=== PATIENT | female | born 1985 | race Caucasian/White ===

== ENCOUNTER 2016-12-09 15:13 | Emergency (ER) | payer MEDICAID ==
[2016-12-09] MEDS ORDERED: IBUPROFEN 800 MG TABLET PO ONE (15:19)
--- NOTE | 2016-12-09 15:19 | ER Document Report ---
ED Medical Screen (RME) - General Stated Complaint: FLANK PAIN Time seen by provider: 15:17 Mode of Arrival: Ambulatory Information source: Patient Notes: 31-year-old female presents to ED for right flank pain with nausea and vomiting. Patient states she's had multiple multiple kidney stones and this is what they feel like. States she has a bilateral tubal ligation and her period was 2 weeks ago I have greeted and performed a rapid initial assessment of this patient. A comprehensive ED assessment and evaluation of the patient, analysis of test results and completion of medical decision making process will be conducted by an additional ED providers. TRAVEL OUTSIDE OF THE [place] IN LAST 30 DAYS: No - Related Data Allergies/Adverse Reactions: amoxicillin trihydrate [From Augmentin] Allergy (Verified 08/14/16 18:31) dolasetron mesylate [From Anzemet] Allergy (Verified 08/14/16 18:31) Iodinated Contrast Media - Oral and [Iodinated Contrast Media - IV Dye] Allergy (Verified 08/14/16 18:31) ketorolac tromethamine [From Toradol] Allergy (Verified 08/14/16 18:31) loperamide HCl [From Imodium A-D] Allergy (Verified 08/14/16 18:31) metoclopramide HCl [From Reglan] Allergy (Verified 08/14/16 18:31) ondansetron HCl [From Zofran (as hydrochloride)] Allergy (Verified 08/14/16 18: 31) potassium clavulanate [From Augmentin] Allergy (Verified 08/14/16 18:31) prochlorperazine [From Compazine] Allergy (Verified 08/14/16 18:31) prochlorperazine edisylate [From Compazine] Allergy (Verified 08/14/16 18:31) prochlorperazine maleate [From Compazine] Allergy (Verified 08/14/16 18:31) Past Medical History - Past Medical History Cardiac Medical History: Reports: Hx Pulmonary Embolism Pulmonary Medical History: Reports: Hx Bronchitis - chronic Neurological Medical History: Reports: Hx Cerebrovascular Accident Endocrine Medical History: Denies: Hx Diabetes Mellitus Type 1, Hx Diabetes Mellitus Type 2 Renal/ Medical History: Reports: Hx Kidney Stones, Hx Ovarian Cysts Psychiatric Medical History: Reports: Hx Anxiety, Hx Depression Past Surgical History: Reports: Hx Section - x2, Hx Cholecystectomy, Hx Genitourinary Surgery - KIDNEY STONES, OVARIAN CYSTS - Immunizations Hx Diphtheria, Pertussis, Tetanus Vaccination: Yes
[2016-12-09] MEDS ORDERED: NORMAL SALINE 1000 ML 1,000 ML IV ONE (15:23)
[2016-12-09] MEDS ORDERED: MORPHINE SULFATE 10 MG/ML INJ IV ONE (16:28)
[2016-12-09] MEDS ORDERED: PROMETHAZINE HCL 25 MG TABLET PO ONE (16:28)
--- NOTE | 2016-12-09 16:34 | ER Document Report ---
ED GI/ <SONIYA ESTEVES - Last Filed: 12/10/16 01:14> - General Mode of Arrival: Ambulatory Information source: Patient TRAVEL OUTSIDE OF THE [place] IN LAST 30 DAYS: No - HPI Patient complains to provider of: Dysuria, Vomiting, Other - Right flank pain. No: Vaginal discharge Onset: Last week Timing/Duration: Persistent, Worse Quality of pain: Sharp Pain Level: 5 Location: Right flank Vaginal bleeding (Compared to normal period): None Associated symptoms: Diarrhea, Nausea, Urinary frequency, Vomiting. denies: Loss of appetite, Vaginal discharge Exacerbated by: Denies Relieved by: Denies Similar symptoms previously: Yes Recently seen / treated by doctor: No <SOLO QUINTERO - Last Filed: 12/10/16 11:20> - General Chief Complaint: Possible Kidney Stone Stated Complaint: FLANK PAIN Notes: Patient presents complaining of right flank pain for the past 6 days. Patient reports nausea with vomiting 3 episodes today. Patient also reports diarrhea times one episode today. Patient states pain started to worsen yesterday. Patient does complain of chills and urinary frequency. (SOLO QUINTERO) - Related Data Allergies/Adverse Reactions: amoxicillin trihydrate [From Augmentin] Allergy (Verified 12/09/16 15:20) dolasetron mesylate [From Anzemet] Allergy (Verified 12/09/16 15:20) Iodinated Contrast Media - Oral and [Iodinated Contrast Media - IV Dye] Allergy (Verified 12/09/16 15:20) ketorolac tromethamine [From Toradol] Allergy (Verified 12/09/16 15:20) loperamide HCl [From Imodium A-D] Allergy (Verified 12/09/16 15:20) metoclopramide HCl [From Reglan] Allergy (Verified 12/09/16 15:20) ondansetron HCl [From Zofran (as hydrochloride)] Allergy (Verified 12/09/16 15: 20) potassium clavulanate [From Augmentin] Allergy (Verified 12/09/16 15:20) prochlorperazine [From Compazine] Allergy (Verified 12/09/16 15:20) prochlorperazine edisylate [From Compazine] Allergy (Verified 12/09/16 15:20) prochlorperazine maleate [From Compazine] Allergy (Verified 12/09/16 15:20) Past Medical History - General Information source: Patient - Social History Smoking Status: Unknown if Ever Smoked Chew tobacco use (# tins/day): No Frequency of alcohol use: None Drug Abuse: None Occupation: none Lives with: Family Family History: None Patient has suicidal ideation: No Patient has homicidal ideation: No - Medical History Medical History: Other - [place] - Past Medical History Cardiac Medical History: Reports: Hx DVT, Hx Pulmonary Embolism Pulmonary Medical History: Reports: Hx Bronchitis - chronic Neurological Medical History: Reports: Hx Cerebrovascular Accident Endocrine Medical History: Denies: Hx Diabetes Mellitus Type 1, Hx Diabetes Mellitus Type 2 Renal/ Medical History: Reports: Hx Kidney Stones, Hx Ovarian Cysts. Denies: Hx Peritoneal Dialysis Psychiatric Medical History: Reports: Hx Anxiety, Hx Depression Past Surgical History: Reports: Hx Section - x2, Hx Cholecystectomy, Hx Genitourinary Surgery - KIDNEY STONES, OVARIAN CYSTS - Immunizations Hx Diphtheria, Pertussis, Tetanus Vaccination: Yes <SOLO QUINTERO - Last Filed: 12/10/16 11:20> Review of Systems - Review of Systems Constitutional: Chills. denies: Fever EENT: No symptoms reported Cardiovascular: No symptoms reported. denies: Chest pain Respiratory: No symptoms reported. denies: Cough, Short of breath Gastrointestinal: Abdominal pain, Diarrhea, Nausea, Vomiting Genitourinary: Frequency, Flank pain Female Genitourinary: No symptoms reported. denies: , Vaginal discharge , Vaginal bleeding Musculoskeletal: No symptoms reported. denies: Back pain Skin: No symptoms reported Hematologic/Lymphatic: No symptoms reported Neurological/Psychological: No symptoms reported <SOLO QUINTERO - Last Filed: 12/10/16 11:20> Physical Exam <SONIYA ESTEVES - Last Filed: 12/10/16 01:14> - Vital signs Interpretation: Normal - apical 100 bpm. No: Tachycardic - General General appearance: Appears well, Alert In distress: Mild <SOLO QUINTERO - Last Filed: 12/10/16 11:20> - Vital signs Vitals: Temp Pulse Resp BP Pulse Ox 97.8 F 120 H 19 106/51 L 100 12/09/16 15:19 12/09/16 15:19 12/09/16 15:19 12/09/16 15:19 12/09/16 15:19 (SONIYA ESTEVES) (SOLO QUINTERO) - General Notes: PHYSICAL EXAMINATION: GENERAL: Patient sitting at side of bed, appears to be in discomfort HEAD: Atraumatic, normocephalic. EYES: sclera anicteric, conjunctiva are normal. ENT: nares patent. Moist mucous membranes. NECK: Normal range of motion, supple without lymphadenopathy LUNGS: CTAB and equal. No wheezes rales or rhonchi. HEART: Regular rate and rhythm without murmurs ABDOMEN: Soft, nontender, normal bowel sounds, no guarding. EXTREMITIES: Normal range of motion, no pitting edema. No cyanosis. BACK: No midline tenderness, no step-off or deformity. right CVA tenderness NEUROLOGICAL: Cranial nerves grossly intact. Normal speech. PSYCH: Normal mood, normal affect. SKIN: Warm, Dry, normal turgor, no rashes or lesions noted (SOLO QUINTERO) Course - Laboratory Result Diagrams: 12/09/16 17:50 12/09/16 16:55 <SONIYA ESTEVES - Last Filed: 12/10/16 01:14> - Laboratory Result Diagrams: 12/09/16 17:50 12/09/16 16:55 <SOLO QUINTERO - Last Filed: 12/10/16 11:20> - Re-evaluation Re-evalutation: 12/09/16 Ultrasound shows no hydronephrosis or stones, no other abnormality noted. Patient with hematuria but normal lab workup otherwise. It is possible patient passed the stone with resulting hematuria and pain. Patient occassionally becomes anxious during conversation and begins to ask "what if" questions including obstruction and return precautions. Discussed with patient in detail. Patient was given prescriptions for pain medication, we discussed return precautions including fever, uncontrolled vomiting, etc. Patient states understanding and agreement. (SONIYA ESTEVES) 12/09/16 16:54 Patient given morphine IV. Patient states she's had this medication in the past without adverse reaction. Patient complains of itching and hives to right upper extremity. Dr. Salas at bedside, states that we can hold epinephrine at this time but does recommend IV solu Medrol and Benadryl. Patient very anxious , although is having blood drawn by cto at this time. Respirations even unlabored. No angioedema. No potential airway compromise. 12/09/16 17:11 Patient very anxious, states that her anxiety is worse in her pain and is requesting something for her anxiety symptoms. 12/09/16 17:57 Patient tearful, continually rocking, requesting for additional pain medication. 12/09/16 19:[address] Salas, reviewed diagnostics, recommends renal ultrasound Bedside report and handoff given to Yifan ALCANTARA (SOLO QUINTERO) - Vital Signs Vital signs: Temp Pulse Resp BP Pulse Ox 98.6 F 112 H 18 122/89 H 95 12/09/16 23:02 12/09/16 23:02 12/09/16 23:02 12/09/16 23:02 12/09/16 23:02 (SONIYA ESTEVES) (SOLO QUINTERO) - Laboratory Laboratory results interpreted by me: 12/09/16 18:15 Urine Blood LARGE H Ur Leukocyte Esterase TRACE H (SONIYA ESTEVES) 12/09/16 18:15 Urine Blood LARGE H Ur Leukocyte Esterase TRACE H 12/10/16 11:20 Labs- Entire Visit 12/09/16 12/09/16 12/09/16 16:55 16:55 16:55 WBC Cancelled RBC Cancelled Hgb Cancelled Hct Cancelled MCV Cancelled MCH Cancelled MCHC Cancelled RDW Cancelled Plt Count Cancelled Seg Neutrophils % Cancelled Lymphocytes % Cancelled Monocytes % Cancelled Eosinophils % Cancelled Basophils % Cancelled Absolute Neutrophils Cancelled Absolute Lymphocytes Cancelled Absolute Monocytes Cancelled Absolute Eosinophils Cancelled Absolute Basophils Cancelled Platelet Estimate Cancelled Sodium 143.6 Potassium 4.2 Chloride 104 Carbon Dioxide 26 Anion Gap 14 BUN 13 Creatinine 0.77 Est GFR ( Amer) > 60 Est GFR (Non-Af Amer) > 60 Glucose 92 Calcium 9.9 Total Bilirubin 0.6 Direct Bilirubin 0.0 AST 14 ALT 25 Alkaline Phosphatase 114 Total Protein 7.9 Albumin 4.1 Lipase 80.6 Serum HCG, Qual NEGATIVE Urine Color Urine Appearance Urine pH Ur Specific [place] Urine Protein Urine Glucose (UA) Urine Ketones Urine Blood Urine Nitrite Urine Bilirubin Urine Urobilinogen Ur Leukocyte Esterase Urine WBC (Auto) Urine RBC (Auto) Urine Bacteria (Auto) Squamous Epi Cells Auto U Non-Squamous Epis Auto Urine Mucus (Auto) Urine Ascorbic Acid Slides for Path Review Cancelled 12/09/16 12/09/16 17:50 18:15 WBC 10.0 RBC 5.17 Hgb 14.3 Hct 44.4 MCV 86 MCH 27.7 MCHC 32.3 RDW 13.5 Plt Count 245 Seg Neutrophils % 64.8 Lymphocytes % 27.6 Monocytes % 7.0 Eosinophils % 0.0 Basophils % 0.6 Absolute Neutrophils 6.5 Absolute Lymphocytes 2.8 Absolute Monocytes 0.7 Absolute Eosinophils 0.0 Absolute Basophils 0.1 Platelet Estimate Sodium Potassium Chloride Carbon Dioxide Anion Gap BUN Creatinine Est GFR ( Amer) Est GFR (Non-Af Amer) Glucose Calcium Total Bilirubin Direct Bilirubin AST ALT Alkaline Phosphatase Total Protein Albumin Lipase Serum HCG, Qual Urine Color YELLOW Urine Appearance CLOUDY Urine pH 8.0 Ur Specific [place] 1.009 Urine Protein NEGATIVE Urine Glucose (UA) NEGATIVE Urine Ketones NEGATIVE Urine Blood LARGE H Urine Nitrite NEGATIVE Urine Bilirubin NEGATIVE Urine Urobilinogen NEGATIVE Ur Leukocyte Esterase TRACE H Urine WBC (Auto) 9 Urine RBC (Auto) 132 Urine Bacteria (Auto) 1+ Squamous Epi Cells Auto 48 U Non-Squamous Epis Auto 1 Urine Mucus (Auto) RARE Urine Ascorbic Acid NEGATIVE Slides for Path Review (SOLO QUINTERO) Discharge <SONIYA ESTEVES - Last Filed: 12/10/16 01:14> <SOLO QUINTERO - Last Filed: 12/10/16 11:20> - Discharge Clinical Impression: Right flank pain Condition: Stable Disposition: HOME, SELF-CARE Additional Instructions: Your urine shows blood, your workup otherwise is normal (including your ultrasound which shows no swelling or stones). It is possible you passed a stone already. Take the medications if needed for pain. Follow up with Urology. Return to the ED for any concerning symptoms- fever, vomiting, etc. Prescriptions: Oxycodone HCl/Acetaminophen [Percocet 5-325 mg Tablet] 1 - 2 tab PO Q4H PRN #15 tablet PRN Reason: Promethazine HCl [Phenergan 25 mg Tablet] 1 - 2 tab PO Q6H PRN #20 tablet PRN Reason:
[2016-12-09] MEDS ORDERED: EPINEPHRINE INJ/PF 1 MG/1 ML AMPULE ONE (16:49)
[2016-12-09] MEDS ORDERED: DIPHENHYDRAMINE HCL 50 MG/ML VIAL ONE (16:49)
[2016-12-09] MEDS ORDERED: EPINEPHRINE INJ/PF 1 MG/1 ML AMPULE IM ONE (16:50)
[2016-12-09] MEDS ORDERED: DIPHENHYDRAMINE HCL 50 MG/ML VIAL IV ONE (16:50)
[2016-12-09] MEDS ORDERED: METHYLPREDNISOLONE INJ 125 MG/2 ML SDV IV ONE (16:50)
[2016-12-09] MEDS ORDERED: FAMOTIDINE INJ/PF 20 MG/2 ML SDV IV ONE (16:53)
[2016-12-09] MEDS ORDERED: LORAZEPAM INJ 2 MG/1 ML VIAL IV ONE (17:10)
[2016-12-09 17:31] LABS: ALANINE AMINOTRANSFERASE 25 U/L (9-52); ALBUMIN 4.1 g/dL (3.5-5.0); ALKALINE PHOSPHATASE 114 U/L (38-126); ANION GAP 14 (5-19); ASPARTATE AMINO TRANSFERASE 14 U/L (14-36); BILIRUBIN,TOTAL 0.6 mg/dL (0.2-1.3); BLOOD UREA NITROGEN 13 mg/dL (7-20); CALCIUM 9.9 mg/dL (8.4-10.2); CARBON DIOXIDE 26 mmol/L (22-30); CHLORIDE 104 mmol/L (98-107); CREATININE RESULT 0.77 mg/dL (0.52-1.25); GLUCOSE 92 mg/dL (75-110); LIPASE 80.6 U/L (23-300); POTASSIUM 4.2 mmol/L (3.6-5.0); SODIUM 143.6 mmol/L (137-145); TOTAL PROTEIN 7.9 g/dL (6.3-8.2)
[2016-12-09] MEDS ORDERED: HYDROMORPHONE HCL INJ/PF 2 MG/ML AMPULE IV ONE ×2 (17:57→20:42)
[2016-12-09 18:25] LABS: ABSOLUTE BASOPHILS # (AUTO) 0.1 10^3/uL (0.0-0.2); ABSOLUTE LYMPHOCYTES (AUTO) 2.8 10^3/uL (0.5-4.7); ABSOLUTE MONOCYTES (AUTO) 0.7 10^3/uL (0.1-1.4); ABSOLUTE NEUT (AUTO) 6.5 10^3/uL (1.7-8.2); BASOPHILS % (AUTO) 0.6 % (0-2); HEMATOCRIT 44.4 % (36.0-47.0); HEMOGLOBIN 14.3 g/dL (12.0-15.5); HGB HCT DIFFERENCE -1.5; LYMPHOCYTES % (AUTO) 27.6 % (13-45); MEAN CORPUSCULAR HEMOGLOBIN 27.7 pg (27.0-33.4); MEAN CORPUSCULAR HGB CONC 32.3 g/dL (32.0-36.0); MEAN CORPUSCULAR VOLUME 86 fl (80-97); RED BLOOD COUNT 5.17 10^6/uL (3.72-5.28); RED CELL DISTRIBUTION WIDTH 13.5 % (11.5-14.0); SEGMENTED NEUTROPHILS % (AUTO) 64.8 % (42-78)
[2016-12-09 18:50] LABS: APPEARANCE,URINE CLOUDY; BILIRUBIN,URINE NEGATIVE (NEGATIVE); GLUCOSE, URINE NEGATIVE (NEGATIVE); KETONES,URINE NEGATIVE (NEGATIVE); LEUKOCYTE ESTERASE,URINE TRACE (NEGATIVE); NITRITE,URINE NEGATIVE (NEGATIVE); PROTEIN,URINE NEGATIVE (NEGATIVE); URINE SPECIFIC GRAVITY 1.009; UROBILINOGEN,URINE NEGATIVE mg/dL (<2.0)
[2016-12-09 23:03] VITALS: BP 122/89
== END 2016-12-09 23:11 | disposition home or self-care (01) ==
LOC: ER 15:13
DX: R10.9 Unspecified abdominal pain (principal); R11.2 Nausea with vomiting, unspecified; R19.7 Diarrhea, unspecified; R68.83 Chills (without fever); R35.0 Frequency of micturition; R31.9 Hematuria, unspecified; F41.9 Anxiety disorder, unspecified; L50.9 Urticaria, unspecified; Z88.0 Allergy status to penicillin; Z91.041 Radiographic dye allergy status; Z88.8 Allergy status to other drugs, medicaments and biological substances; Z86.711 Personal history of pulmonary embolism; Z86.73 Personal history of transient ischemic attack (TIA), and cerebral infarction without residual deficits; Z86.718 Personal history of other venous thrombosis and embolism; Z87.42 Personal history of other diseases of the female genital tract; Z90.49 Acquired absence of other specified parts of digestive tract
CPT/HCPCS: 96376; 99284; 96361; 96374; 96375; 36415; 83690; 84703; 85025; 80053; 81001; 76770; J3490 ×2; J1200; J2930; J2270; J1170; J2060; J7030; S0028

== ENCOUNTER 2017-01-14 16:31 | Emergency (ER) | payer MEDICAID ==
[2017-01-14 16:36] VITALS: BP 139/84
[2017-01-14] MEDS ORDERED: ACETAMINOPHEN 325 MG TABLET PO ONE (16:49)
--- NOTE | 2017-01-14 16:52 | ER Document Report ---
ED Medical Screen (RME) - General Stated Complaint: EAR PAIN Time seen by provider: 16:49 Mode of Arrival: Ambulatory Information source: Patient Notes: 31-year-old female complaining of right-sided jaw/ear pain and preauricular/ inferior ear pain. hurts when she opens her mouth. She has a history of TMJ. Her ear is normal in triage. I have greeted and performed a rapid initial assessment of this patient. A comprehensive ED assessment, evaluation of the patient, analysis of test results , and completion of the medical decision making process will be conducted by additional ED providers. TRAVEL OUTSIDE OF THE [place] IN LAST 30 DAYS: No - Related Data Allergies/Adverse Reactions: amoxicillin trihydrate [From Augmentin] Allergy (Verified 12/09/16 15:20) dolasetron mesylate [From Anzemet] Allergy (Verified 12/09/16 15:20) Iodinated Contrast Media - Oral and [Iodinated Contrast Media - IV Dye] Allergy (Verified 12/09/16 15:20) ketorolac tromethamine [From Toradol] Allergy (Verified 12/09/16 15:20) loperamide HCl [From Imodium A-D] Allergy (Verified 12/09/16 15:20) metoclopramide HCl [From Reglan] Allergy (Verified 12/09/16 15:20) nitrofurantoin [From Macrodantin] Allergy (Verified 01/14/17 16:49) ondansetron HCl [From Zofran (as hydrochloride)] Allergy (Verified 12/09/16 15: 20) potassium clavulanate [From Augmentin] Allergy (Verified 12/09/16 15:20) prochlorperazine [From Compazine] Allergy (Verified 12/09/16 15:20) prochlorperazine edisylate [From Compazine] Allergy (Verified 12/09/16 15:20) prochlorperazine maleate [From Compazine] Allergy (Verified 12/09/16 15:20) Sulfa (Sulfonamide Antibiotics) Allergy (Verified 01/14/17 16:49) Past Medical History - Past Medical History Cardiac Medical History: Reports: Hx DVT, Hx Pulmonary Embolism Pulmonary Medical History: Reports: Hx Bronchitis - chronic Neurological Medical History: Reports: Hx Cerebrovascular Accident Endocrine Medical History: Denies: Hx Diabetes Mellitus Type 1, Hx Diabetes Mellitus Type 2 Renal/ Medical History: Reports: Hx Kidney Stones, Hx Ovarian Cysts. Denies: Hx Peritoneal Dialysis Psychiatric Medical History: Reports: Hx Anxiety, Hx Depression Past Surgical History: Reports: Hx Section - x2, Hx Cholecystectomy, Hx Genitourinary Surgery - KIDNEY STONES, OVARIAN CYSTS - Immunizations Hx Diphtheria, Pertussis, Tetanus Vaccination: Yes Physical Exam - Vital signs Vitals: Temp Pulse Resp BP Pulse Ox 98.7 F 117 H 18 139/84 H 99 01/14/17 16:35 01/14/17 16:35 01/14/17 16:35 01/14/17 16:35 01/14/17 16:35 Course - Vital Signs Vital signs: Temp Pulse Resp BP Pulse Ox 98.7 F 117 H 18 139/84 H 99 01/14/17 16:35 01/14/17 16:35 01/14/17 16:35 01/14/17 16:35 01/14/17 16:35
[2017-01-14] MEDS ORDERED: LIDOCAINE 1% INJ-PF (10 MG/ML) 30 ML SDV INJ ONE (17:12)
[2017-01-14] MEDS ORDERED: CEFTRIAXONE INJ 1000 MG VIAL IM ONE (17:12)
[2017-01-14] MEDS ORDERED: HYDROMORPHONE HCL INJ/PF 2 MG/ML AMPULE IM ONE (17:20)
--- NOTE | 2017-01-14 17:29 | ER Document Report ---
ED ENT - General Chief Complaint: Ear Pain Stated Complaint: EAR PAIN Mode of Arrival: Ambulatory Notes: Patient is complaining of severe pain in her right ear that's been present for about 3 weeks. She actually points to just beneath the external ear as the location of her main pain. She was first seen by her primary care provider 3 weeks ago who gave her a shot of steroids. A week and a half ago, the pain persisted and the patient went back to her primary care physician who said that she had developed an infection and gave her a shot of Rocephin and put her on Omnicef twice a day. Monday she continued to have pain and went back to her primary care provider who gave another shot of Rocephin and told her that she was going to need to see an ear nose and throat doctor. She complains of such severe pain that she's been unable to eat or swallow. She has had no vomiting, but some diarrhea. Says that she's had fevers as high as 100. Patient has a history of anxiety and depression and ADHD. She is on Vyvanse for the latter. TRAVEL OUTSIDE OF THE [place] IN LAST 30 DAYS: No - Related Data Allergies/Adverse Reactions: amoxicillin trihydrate [From Augmentin] Allergy (Verified 01/14/17 17:15) dolasetron mesylate [From Anzemet] Allergy (Verified 01/14/17 17:15) Iodinated Contrast Media - Oral and [Iodinated Contrast Media - IV Dye] Allergy (Verified 01/14/17 17:15) ketorolac tromethamine [From Toradol] Allergy (Verified 01/14/17 17:15) loperamide HCl [From Imodium A-D] Allergy (Verified 01/14/17 17:15) metoclopramide HCl [From Reglan] Allergy (Verified 01/14/17 17:15) nitrofurantoin [From Macrodantin] Allergy (Verified 01/14/17 17:15) ondansetron HCl [From Zofran (as hydrochloride)] Allergy (Verified 01/14/17 17: 15) potassium clavulanate [From Augmentin] Allergy (Verified 01/14/17 17:15) prochlorperazine [From Compazine] Allergy (Verified 01/14/17 17:15) prochlorperazine edisylate [From Compazine] Allergy (Verified 01/14/17 17:15) prochlorperazine maleate [From Compazine] Allergy (Verified 01/14/17 17:15) Sulfa (Sulfonamide Antibiotics) Allergy (Verified 01/14/17 17:15) Past Medical History - General Information source: Patient - Social History Smoking Status: Unknown if Ever Smoked Chew tobacco use (# tins/day): No Frequency of alcohol use: None Drug Abuse: None Family History: None, Reviewed & Not Pertinent Patient has suicidal ideation: No Patient has homicidal ideation: No - Past Medical History Cardiac Medical History: Reports: Hx DVT, Hx Pulmonary Embolism Pulmonary Medical History: Reports: Hx Bronchitis - chronic Neurological Medical History: Reports: Hx Cerebrovascular Accident Renal/ Medical History: Reports: Hx Kidney Stones, Hx Ovarian Cysts Psychiatric Medical History: Reports: Hx Anxiety, Hx Attention Deficit Hyperactivity Disorder, Hx Depression Past Surgical History: Reports: Hx Section - x2, Hx Cholecystectomy, Hx Genitourinary Surgery - KIDNEY STONES, OVARIAN CYSTS - Immunizations Hx Diphtheria, Pertussis, Tetanus Vaccination: Yes Review of Systems - Review of Systems Notes: REVIEW OF SYSTEMS: CONSTITUTIONAL : Says she has had a fever. EENT: Denies eye, nose or mouth or throat pain or other symptoms. CARDIOVASCULAR: Denies chest pain. RESPIRATORY: Denies cough, chest congestion, or shortness of breath. GASTROINTESTINAL: Denies abdominal pain or nausea, vomiting, but has had some diarrhea. GENITOURINARY: Denies difficulty or painful urinating, urinary frequency, blood in urine. MUSCULOSKELETAL: Denies back or neck pain. Denies joint pain or swelling. SKIN: Denies rash or skin lesions. NEUROLOGICAL: Denies LOC or altered mental status. Denies headache. Denies sensory loss or motor deficits. ALL OTHER SYSTEMS REVIEWED AND NEGATIVE. Physical Exam - Vital signs Vitals: Temp Pulse Resp BP Pulse Ox 98.7 F 117 H 18 139/84 H 99 01/14/17 16:35 01/14/17 16:35 01/14/17 16:35 01/14/17 16:35 01/14/17 16:35 Interpretation: Tachycardic - Mild - Notes Notes: PHYSICAL EXAMINATION: GENERAL: Well-appearing, in no acute distress. Vital signs essentially normal except for very mild tachycardia. Patient appears to be very anxious and in pain. Holding a heat pack to the right external ear and just below the ear. HEAD: Atraumatic, normocephalic. ENT: oropharynx clear without exudates. Moist mucous membranes. TMs are both visualized. There may be small amount of fluid behind the TMs, but they're not erythematous and no purulent collection present. NECK: Normal range of motion, supple. LUNGS: Breath sounds clear and equal bilaterally. HEART: Regular rate and rhythm without murmurs. ABDOMEN: Soft, nontender. No guarding or rebound. EXTREMITIES: Normal range of motion without pain. NEUROLOGICAL: Normal speech, normal gait. Normal sensory, motor, and reflex exams. Awake, alert, and oriented x3. Cranial nerves normal. SKIN: Warm, dry, no rashes. Course - Re-evaluation Re-evalutation: 01/14/17 20:22 I reviewed the patient's visit to this emergency department. She has been here 12 times since last April, for an assortment of painful conditions. Additionally , I checked on the [place] pharmacy board and found that the patient had received a substantial amount of pain medications in the past couple of months. Since we do not have any opinion about her visits to the emergency department and obtaining pain medication, I'm going to go ahead and give her enough Percocet to last until Monday when she can see her primary care provider. I've also given her an injection of Rocephin because she said that her ear seemed to improve after each of the previous 2 injections of the same. In her discharge instructions, I provided the patient with noticed that we do not manage chronic pain in this emergency department. - Vital Signs Vital signs: Temp Pulse Resp BP Pulse Ox 98.7 F 117 H 18 139/84 H 99 01/14/17 16:35 01/14/17 16:35 01/14/17 16:35 01/14/17 16:35 01/14/17 16:35 Discharge - Discharge Clinical Impression: Earache on right Condition: Stable Disposition: HOME, SELF-CARE Additional Instructions: EAR PAIN: You are experiencing ear pain for an unknown reason. At this time, we do not see any evidence of infection in that right ear. I do not have data governance consultant any ear nose and throat doctors to refer you to. I'm going to temporize by give you an injection of Rocephin and an injection of Dilaudid and enough Percocet to last you until Monday when you can then see your private doctor to work out being referred to an pedigree researcher. Rocephin You have been given an injection of an antibiotic called Rocephin ( ceftriaxone). Sometimes the injection must be combined with antibiotic pills. For some infections, such as an uncomplicated ear infection, Rocephin provides all the antibiotic that's needed. The antibiotic will be in your body for about two days. For serious infections, we usually repeat doses of Rocephin daily. Side effects are very unusual following a shot. Women may develop vaginal yeast infections, and babies can get yeast (thrush) in the mouth following the use of antibiotics. Contact your physician if you have symptoms with this medication. Allergy to this antibiotic can result in hives, wheezing, faintness, or itching. If symptoms of allergy occur, call the doctor at once. Pain Medication Injection You have received an injection of a pain medication. You should experience significant pain relief within 45 minutes. This drug is a narcotic - - it will impair your judgement, slow your reaction time and make you sleepy ( as well as relieve your pain). Narcotics also can cause nausea. You should not drive, work with machinery, or perform any task requiring mental alertness until all effects of the medication are gone -- six to eight hours. Do not take any alcohol, or sedatives, and do not take any other medication without checking with your physician. Oral Narcotic Medication You have been given a prescription for pain control. This medication is a narcotic. It's best taken with food, as nausea can result if taken on an empty stomach. Don't operate machinery or drive within six hours of taking this medication. Do not combine this medicine with alcohol, or with any medication which can cause sedation (such as cold tablets or sleeping pills) unless you get permission from the physician. Narcotics tend to cause constipation. If possible, drink plenty of fluids and eat a diet high in fiber and fruits. FOLLOW-UP CARE: If you have been referred to a physician for follow-up care, call the physician s office for an appointment as you were instructed or within the next two days. If you experience worsening or a significant change in your symptoms, notify the physician immediately or return to the Emergency Department at any time for re-evaluation. Chronic Pain Control Stress, inactivity, and depression make pain more severe regardless of the cause of the pain. Stress and poor physical condition can cause pain such as headaches and backache. Relaxation: Rest in a quiet place with your eyes closed for 20 minutes twice daily. Concentrate on a pleasant image, or simply "feel" your breathing. Clear your mind. Stress management: Deal with your "stressors." Either take action, or eliminate the stressor from your life. Don't let things hang over you. Accept those things you can't change. Nutrition: Eat small, balanced meals -- don't skip, don't overeat. Meals should be high-carbohydrate, low-sugar, low-fat. Exercise: Exercise helps painful conditions and eases stress. Get 30 minutes of moderate exercise, five days a week. Do an activity that does not flare your pain. Precautions: Pain which continues to disrupt daily activities, or which changes in nature, requires a medical evaluation. Pain Clinic referral is available. We do not manage chronic pain in the Emergency Department. We will try to appropriately help you through an acute flare of your chronic painful condition , but for on-going chronic pain that does not improve, you will need to see your private doctor or painting machine operator. We do not provide repeated medication management of chronic painful conditions. If you wish, we can provide the name of local pain management physicians. Prescriptions: Oxycodone HCl/Acetaminophen [Percocet 5-325 mg Tablet] 1 - 2 tab PO Q4HP PRN # 10 tablet PRN Reason:
== END 2017-01-14 18:00 | disposition home or self-care (01) ==
LOC: ER 16:31
DX: H92.01 Otalgia, right ear (principal); R19.7 Diarrhea, unspecified; R00.0 Tachycardia, unspecified; F90.9 Attention-deficit hyperactivity disorder, unspecified type; Z79.899 Other long term (current) drug therapy; Z88.0 Allergy status to penicillin; Z91.041 Radiographic dye allergy status; Z88.8 Allergy status to other drugs, medicaments and biological substances; Z88.1 Allergy status to other antibiotic agents; Z88.2 Allergy status to sulfonamides; Z86.711 Personal history of pulmonary embolism; Z86.718 Personal history of other venous thrombosis and embolism; Z86.73 Personal history of transient ischemic attack (TIA), and cerebral infarction without residual deficits
CPT/HCPCS: 99282; 96372; J3490 ×2; J1170; J0696

== ENCOUNTER 2017-05-15 08:44 | Emergency (ER) | payer MEDICAID ==
--- NOTE | 2017-05-15 09:05 | ER Document Report ---
ED General - General Chief Complaint: Syncope Stated Complaint: TOOTH PAIN Time Seen by Provider: 05/15/17 09:03 Notes: Patient is a 32-year-old female who presents by EMS with dental pain. She was at the dentist office and had her Medicaid card, but she did not have an ID or certificate and was unable to see the dentist. Pt is using Motrin and ice packs to help with her pain. In addition, she was urinating this morning and had a brief syncopal event. She is complaining of right shoulder and right knee pain from the fall. She did not hit her head. Denies chest pain, shortness of breath, abdominal pain, fevers, headache, neck pain, numbness, tingling, hemoptysis, estrogen use or leg swelling. TRAVEL OUTSIDE OF THE [place] IN LAST 30 DAYS: No - Related Data Allergies/Adverse Reactions: amoxicillin trihydrate [From Augmentin] Allergy (Verified 05/15/17 08:51) dolasetron mesylate [From Anzemet] Allergy (Verified 05/15/17 08:51) Iodinated Contrast- Oral and IV Dye [Iodinated Contrast Media - IV Dye] Allergy (Verified 05/15/17 08:51) ketorolac tromethamine [From Toradol] Allergy (Verified 05/15/17 08:51) loperamide HCl [From Imodium A-D] Allergy (Verified 05/15/17 08:51) metoclopramide HCl [From Reglan] Allergy (Verified 05/15/17 08:51) morphine Allergy (Verified 05/15/17 08:51) nitrofurantoin [From Macrodantin] Allergy (Verified 05/15/17 08:51) ondansetron HCl [From Zofran (as hydrochloride)] Allergy (Verified 05/15/17 08: 51) potassium clavulanate [From Augmentin] Allergy (Verified 05/15/17 08:51) prochlorperazine [From Compazine] Allergy (Verified 05/15/17 08:51) prochlorperazine edisylate [From Compazine] Allergy (Verified 05/15/17 08:51) prochlorperazine maleate [From Compazine] Allergy (Verified 05/15/17 08:51) Sulfa (Sulfonamide Antibiotics) Allergy (Verified 05/15/17 08:51) Past Medical History - General Information source: Patient - Social History Smoking Status: Current Every Day Smoker Family History: None, Reviewed & Not Pertinent Patient has suicidal ideation: No Patient has homicidal ideation: No - Past Medical History Cardiac Medical History: Reports: Hx DVT, Hx Pulmonary Embolism Pulmonary Medical History: Reports: Hx Bronchitis - chronic Neurological Medical History: Reports: Hx Cerebrovascular Accident Endocrine Medical History: Denies: Hx Diabetes Mellitus Type 1, Hx Diabetes Mellitus Type 2 Renal/ Medical History: Reports: Hx Kidney Stones, Hx Ovarian Cysts. Denies: Hx Peritoneal Dialysis Psychiatric Medical History: Reports: Hx Anxiety, Hx Attention Deficit Hyperactivity Disorder, Hx Depression Past Surgical History: Reports: Hx Section - x2, Hx Cholecystectomy, Hx Genitourinary Surgery - KIDNEY STONES, OVARIAN CYSTS - Immunizations Hx Diphtheria, Pertussis, Tetanus Vaccination: Yes Review of Systems - Review of Systems Notes: REVIEW OF SYSTEMS: CONSTITUTIONAL: -fevers, -chills EENT: +dental pain, -eye pain, -difficulty swallowing, -nasal congestion CARDIOVASCULAR: -chest pain, +syncope. RESPIRATORY: -cough, -SOB GASTROINTESTINAL: -abdominal pain, - nausea, -vomiting, -diarrhea GENITOURINARY: -dysuria, -hematuria MUSCULOSKELETAL: -back pain, -neck pain SKIN: -rash or skin lesions. HEMATOLOGIC: -easy bruising or bleeding. LYMPHATIC: -swollen, enlarged glands. NEUROLOGICAL: -altered mental status or loss of consciousness, -headache, - neurologic symptoms PSYCHIATRIC: -anxiety, -depression. ALL OTHER SYSTEMS REVIEWED AND NEGATIVE. Physical Exam - Vital signs Vitals: Temp Pulse Resp BP Pulse Ox 97.5 F 110 H 19 120/70 98 05/15/17 08:51 05/15/17 08:51 05/15/17 08:51 05/15/17 08:51 05/15/17 08:51 - Notes Notes: PHYSICAL EXAMINATION: GENERAL: Anxious HEAD: Atraumatic, normocephalic. EYES: Pupils equal round and reactive to light, extraocular movements intact, sclera anicteric, conjunctiva are normal. ENT: right lower molar tenderness, nares patent, oropharynx clear without exudates. Moist mucous membranes. NECK: Normal range of motion, supple without lymphadenopathy LUNGS: Breath sounds clear to auscultation bilaterally and equal. No wheezes rales or rhonchi. HEART: Tachycardic. ABDOMEN: Soft, nontender, normoactive bowel sounds. No guarding, no rebound. No masses appreciated. EXTREMITIES: Normal range of motion, no pitting or edema. No cyanosis. NEUROLOGICAL: Cranial nerves grossly intact. Normal speech, normal gait. Normal sensory and motor exams. PSYCH: Anxious SKIN: Warm, Dry, normal turgor, no rashes or lesions noted. Course - Re-evaluation Re-evalutation: Patient's blood work and urine did not show any dangerous cause for her syncope. Considered PE, but less likely at this time without any chest pain, shortness of breath or risk factors. Her EKG shows sinus tachycardia, but no evidence of arrhythmias. She is tachycardic most likely from her dental pain when she is crying in the emergency room. After right inferior alveolar and 2 apical dental blocks with 0.5% bupivacaine, patient feels much better and is requesting discharge. Will D/C home with f/u at Dentist and PMD. - Vital Signs Vital signs: Temp Pulse Resp BP Pulse Ox 98.2 F 108 H 21 H 128/97 H 100 05/15/17 10:58 05/15/17 10:58 05/15/17 10:58 05/15/17 10:58 05/15/17 10:58 - Laboratory Result Diagrams: 05/15/17 10:15 05/15/17 10:15 - EKG Interpretation by Mo EKG shows normal: Sinus rhythm, [place], Intervals, QRS Complexes, ST-T Waves Rate: Tachycardia Discharge - Discharge Clinical Impression: Pain, dental Syncope Qualifiers: Syncope type: vasovagal syncope Qualified Code(s): R55 - Syncope and collapse Condition: Stable Disposition: HOME, SELF-CARE Additional Instructions: SYNCOPAL EPISODE: Syncope (fainting or near-fainting) can occur from many different health problems. Or it can be a simple fainting spell requiring no treatment. It is safe for you to go home, but further evaluation will likely be necessary. Your work-up may include tests for internal bleeding, heart disease, medication problems, or near-strokes. Tests are not always required, however, depending on the nature of your problem. The warning signs of an impending faint include: dizziness, lightheadedness , nausea, hot flashes, tingling, and weakness. If this happens, lay down and put your feet up, then wait until all of these symptoms have passed before standing up again. If these episodes become recurrent, or if you develop chest pain, heart palpitations, mental confusion, blurred vision, or headache, then you should call the physician, or go to the emergency room. NORMAL EXAM AND WORKUP: At this time, your examination and workup show no significant abnormality. No significant abnormal physical findings were noted. All laboratory, EKG, and imaging (x-ray, CT scans, ultrasound) studies that were ordered show no significant abnormality. Although your examination and all studies that were ordered showed no significant abnormal finding, there are no examinations and no studies that are 100% accurate. There is always the possibility that some abnormality could exist and not be detected with physical examination or within the limits and capabilities of laboratory and other studies. You should return or follow up as you were instructed on your visit today for further evaluation if your symptoms do not resolve. FOLLOW-UP CARE: If you have been referred to a physician for follow-up care, call the physician s office for an appointment as you were instructed or within the next two days. If you experience worsening or a significant change in your symptoms, notify the physician immediately or return to the Emergency Department at any time for re-evaluation. TOOTHACHE: Your pain is due to dental decay. The tooth must be repaired in order for you to feel better. You will, therefore, be referred to a dentist. We do not have dentists on the staff at [facility]. Severe swelling or drainage around a tooth usually means a dental abscess. This also requires evaluation and treatment by the dentist, but antibiotics may be prescribed while awaiting dental treatment. You should be rechecked immediately if you develop major swelling of the face, increasing pain, a lump in the jaw or gums, headache, difficulty swallowing, or fever. FOLLOW-UP CARE: You have been referred for follow-up care to the dentists listed below. Call the dentists office for an appointment as you were instructed or within the next two days. If you experience worsening or a significant change in your symptoms, notify the physician immediately or return to the Emergency Department at any time for re-evaluation. [facility] [address] Monday mornings, by appointment [place] [id number] [place] [address] [facility] [address] [facility] [address] [place] [facility] [address] [email or web address] [address] [place] [address] Monday- 8:00am to 5:00 pm Will see patients from other [facility]. Charges based on income and family size and accepts Medicare, Medicaid, and Insurances Will pull molars [facility] [id number] Hours of Operation 8:00 am - 4:30 pm weekdays The following dental offices accept Medicaid: [facility] Dr. [address] Dr[address] Bravo Dr. Salas Dr. Tavera Stefano [place], [place], and [place] [facility] Dr. Little ([place]) Dr. Arndt ([place]) [facility] Drs. Bass ([place]) Dr. Larsen ([place]) [facility] Dr. Stern ([place]) Drs. Waller and ([place]) Medicaid Care Line Prescriptions: Acetaminophen with Codeine [Tylenol #3 Tablet] 1 each PO Q4HP PRN #10 tablet PRN Reason: Clindamycin HCl 300 mg PO Q8H 7 Days Referrals: GERA STANLEY MD [Primary Care Provider] - Follow up as needed
[2017-05-15] MEDS ORDERED: ONDANSETRON 4 MG TAB.RAPDIS PO ONE (09:19)
[2017-05-15] MEDS ORDERED: IBUPROFEN 600 MG TABLET PO ONE (09:19)
[2017-05-15] MEDS ORDERED: BUPIVACAINE HCL 0.5 % INJ/PF 30 ML SDV INJ ONE (09:40)
[2017-05-15 10:28] LABS: ABSOLUTE BASOPHILS # (AUTO) 0.1 10^3/uL (0.0-0.2); ABSOLUTE LYMPHOCYTES (AUTO) 1.9 10^3/uL (0.5-4.7); ABSOLUTE MONOCYTES (AUTO) 0.4 10^3/uL (0.1-1.4); ABSOLUTE NEUT (AUTO) 7.5 10^3/uL (1.7-8.2); BASOPHILS % (AUTO) 0.7 % (0-2); HEMATOCRIT 45.1 % (36.0-47.0); HEMOGLOBIN 14.5 g/dL (12.0-15.5); HGB HCT DIFFERENCE -1.6; MEAN CORPUSCULAR HEMOGLOBIN 27.5 pg (27.0-33.4); MEAN CORPUSCULAR HGB CONC 32.3 g/dL (32.0-36.0); MEAN CORPUSCULAR VOLUME 85 fl (80-97); MONOCYTES % (AUTO) 4.3 % (3-13); RED BLOOD COUNT 5.28 10^6/uL (3.72-5.28); WHITE BLOOD COUNT 9.8 10^3/uL (4.0-10.5)
[2017-05-15 10:41] LABS: APPEARANCE,URINE SLIGHTLY-CLOUDY; BILIRUBIN,URINE NEGATIVE (NEGATIVE); GLUCOSE, URINE NEGATIVE (NEGATIVE); KETONES,URINE NEGATIVE (NEGATIVE); LEUKOCYTE ESTERASE,URINE NEGATIVE (NEGATIVE); NITRITE,URINE NEGATIVE (NEGATIVE); PROTEIN,URINE NEGATIVE (NEGATIVE); URINE SPECIFIC GRAVITY 1.015; UROBILINOGEN,URINE NEGATIVE mg/dL (<2.0)
[2017-05-15 10:42] LABS: ALANINE AMINOTRANSFERASE 34 U/L (9-52); ALBUMIN 4.5 g/dL (3.5-5.0); ALKALINE PHOSPHATASE 113 U/L (38-126); ANION GAP 15 (5-19); ASPARTATE AMINO TRANSFERASE 19 U/L (14-36); BILIRUBIN,DIRECT 0.3 mg/dL (0.0-0.4); BILIRUBIN,TOTAL 0.6 mg/dL (0.2-1.3); BLOOD UREA NITROGEN 17 mg/dL (7-20); CALCIUM 9.4 mg/dL (8.4-10.2); CARBON DIOXIDE 24 mmol/L (22-30); CHLORIDE 102 mmol/L (98-107); CREATININE RESULT 0.79 mg/dL (0.52-1.25); GLUCOSE 97 mg/dL (75-110); POTASSIUM 4.5 mmol/L (3.6-5.0); TOTAL PROTEIN 8.2 g/dL (6.3-8.2)
[2017-05-15] MEDS ORDERED: BENZONATATE 100 MG CAPSULE PO ONE (10:49)
[2017-05-15 10:59] VITALS: BP 128/97
--- NOTE | 2017-05-15 12:42 | EKG REPORT ---
SEVERITY:- BORDERLINE ECG - SINUS TACHYCARDIA BORDERLINE T ABNORMALITIES, ANTERIOR LEADS : Confirmed by: Ruiz Pang MD 15-May-2017 12:40:50
== END 2017-05-15 11:06 | disposition home or self-care (01) ==
LOC: ER 08:44
PROC: 3E0T3BZ Introduction of Anesthetic Agent into Peripheral Nerves and Plexi, Percutaneous Approach (ICD-10-PCS; principal; 2017-05-15)
DX: R55 Syncope and collapse (principal); K08.9 Disorder of teeth and supporting structures, unspecified; M25.511 Pain in right shoulder; M25.561 Pain in right knee; W18.30XA Fall on same level, unspecified, initial encounter; F17.200 Nicotine dependence, unspecified, uncomplicated; Z88.0 Allergy status to penicillin; Z88.6 Allergy status to analgesic agent; Z88.2 Allergy status to sulfonamides; Z86.718 Personal history of other venous thrombosis and embolism; Z86.73 Personal history of transient ischemic attack (TIA), and cerebral infarction without residual deficits; Z87.442 Personal history of urinary calculi; Z90.49 Acquired absence of other specified parts of digestive tract
CPT/HCPCS: 93005; 99284; 36415; 85025; 81025; 80053; 81001; 93010; 64400; S0119; J3490

== ENCOUNTER 2017-05-20 20:24 | Emergency (ER) | payer MEDICAID ==
--- NOTE | 2017-05-20 21:07 | ER Document Report ---
ED GI/ - General Chief Complaint: Flank Pain Stated Complaint: Flank pain Time Seen by Provider: 05/20/17 20:38 Mode of Arrival: Medic Information source: Patient Notes: 32-year-old female presents to ED for urinary retention 2 days with pain in the right flank area. She states she has a history of clots in the brain and legs when she was a teenager. She also has a history of kidney stones. She states she did not have not had any pain into the when the pain became severe. In the room crying and moving around on the bed. Vital signs are 122/67 pulse is 107 temperature is 98.2 sat is 98% and respirations are 16 she has multiple allergies to medication to include Toradol Compazine and Zofran and morphine. She is also seen frequently in the emergency room last count 05/15/2017. TRAVEL OUTSIDE OF THE [place] IN LAST 30 DAYS: No - HPI Patient complains to provider of: Abdominal pain, Flank pain, Pelvic pain, Urinary retention Onset: Other - Not voided in 2 days but the pain just started this evening Timing/Duration: Gradual Quality of pain: Pressure, Sharp, Throbbing Severity at maximum: Severe Severity in ED: Severe Pain Level: 5 Location: LUQ, LLQ, RUQ, RLQ, Right flank, Suprapubic, Pelvis Associated symptoms: Nausea, Urinary retention. denies: Vomiting Exacerbated by: Movement Relieved by: Denies Similar symptoms previously: Yes Recently seen / treated by doctor: Yes - Related Data Allergies/Adverse Reactions: amoxicillin trihydrate [From Augmentin] Allergy (Verified 05/20/17 20:30) dolasetron mesylate [From Anzemet] Allergy (Verified 05/20/17 20:30) Iodinated Contrast- Oral and IV Dye [Iodinated Contrast Media - IV Dye] Allergy (Verified 05/20/17 20:30) ketorolac tromethamine [From Toradol] Allergy (Verified 05/20/17 20:30) loperamide HCl [From Imodium A-D] Allergy (Verified 05/20/17 20:30) metoclopramide HCl [From Reglan] Allergy (Verified 05/20/17 20:30) morphine Allergy (Verified 05/20/17 20:30) nitrofurantoin [From Macrodantin] Allergy (Verified 05/20/17 20:30) ondansetron HCl [From Zofran (as hydrochloride)] Allergy (Verified 05/20/17 20: 30) potassium clavulanate [From Augmentin] Allergy (Verified 05/20/17 20:30) prochlorperazine [From Compazine] Allergy (Verified 05/20/17 20:30) prochlorperazine edisylate [From Compazine] Allergy (Verified 05/20/17 20:30) prochlorperazine maleate [From Compazine] Allergy (Verified 05/20/17 20:30) Sulfa (Sulfonamide Antibiotics) Allergy (Verified 05/20/17 20:30) Past Medical History - General Information source: Patient - Social History Smoking Status: Never Smoker Cigarette use (# per day): No Chew tobacco use (# tins/day): No Smoking Education Provided: No Frequency of alcohol use: None Drug Abuse: None Lives with: Spouse/Significant other Family History: None, Reviewed & Not Pertinent - Past Medical History Cardiac Medical History: Reports: Hx DVT, Hx Pulmonary Embolism Pulmonary Medical History: Reports: Hx Bronchitis - chronic Neurological Medical History: Reports: Hx Cerebrovascular Accident - She has had blood clots in her brain Endocrine Medical History: Reports: None Renal/ Medical History: Reports: Hx Kidney Stones, Hx Ovarian Cysts - PCOS Malignancy Medical History: Reports: None GI Medical History: Reports: None Musculoskeltal Medical History: Reports Hx Musculoskeletal Deformity Skin Medical History: Reports None Psychiatric Medical History: Reports: Hx Anxiety, Hx Attention Deficit Hyperactivity Disorder, Hx Depression Traumatic Medical History: Reports: None Past Surgical History: Reports: Hx Section - x2, Hx Cholecystectomy, Hx Genitourinary Surgery - KIDNEY STONES, OVARIAN CYSTS - Immunizations Hx Diphtheria, Pertussis, Tetanus Vaccination: Yes Review of Systems - Review of Systems Constitutional: No symptoms reported EENT: No symptoms reported Cardiovascular: No symptoms reported Respiratory: No symptoms reported Gastrointestinal: Abdominal pain, Nausea Genitourinary: Flank pain, Pain, Retention Female Genitourinary: No symptoms reported Musculoskeletal: No symptoms reported Skin: No symptoms reported Hematologic/Lymphatic: No symptoms reported Neurological/Psychological: Anxiety, Other - Crying -: Yes All other systems reviewed and negative Physical Exam - Vital signs Vitals: Temp Pulse Resp BP Pulse Ox 98.2 F 108 H 16 122/67 99 05/20/17 20:27 05/20/17 20:27 05/20/17 20:27 05/20/17 20:27 05/20/17 20:27 Interpretation: Normal - General General appearance: Appears well, Alert - HEENT Head: Normocephalic, Atraumatic Eyes: Normal Pupils: PERRL - Respiratory Respiratory status: No respiratory distress Chest status: Nontender Breath sounds: Normal Chest palpation: Normal - Cardiovascular Rhythm: Regular Heart sounds: Normal auscultation Murmur: No - Abdominal Inspection: Normal Distension: No distension Bowel sounds: Normal Tenderness: Tender - Last abdominal pelvic pain Organomegaly: No organomegaly - Genitourinary External exam: Other - Rash to her pelvic area patient states she used a wax that she was allergic to - Back Back: Normal, Nontender - Extremities General upper extremity: Normal inspection, Nontender, Normal color, Normal ROM , Normal temperature General lower extremity: Normal inspection, Nontender, Normal color, Normal ROM , Normal temperature, Normal weight bearing. No: Ale's sign - Neurological Neuro grossly intact: Yes Cognition: Normal Orientation: AAOx4 [place] Coma Scale Eye Opening: Spontaneous [place] Coma Scale Verbal: Oriented [place] Coma Scale Motor: Obeys Commands [place] Coma Scale Total: 15 Speech: Normal Motor strength normal: LUE, RUE, LLE, RLE Sensory: Normal - Psychological Associated symptoms: Agitated, Anxious, Tearful - Skin Skin Temperature: Warm Skin Moisture: Dry Skin Color: Normal Course - Re-evaluation Re-evalutation: 05/20/17 23:11 Abdomen ultrasound with patient will discharge home with prescription for Pyridium. Patient was treated with ibuprofen and Pyridium in the emergency room as patient states she is able to take ibuprofen. Her ultrasound and labs were negative and a written report given to the patient for follow-up with her primary doctor. - Vital Signs Vital signs: Temp Pulse Resp BP Pulse Ox 98 F 90 20 122/86 H 98 05/20/17 23:15 05/20/17 23:15 05/20/17 23:15 05/20/17 23:15 05/20/17 23:15 - Laboratory Result Diagrams: 05/20/17 22:30 05/20/17 22:30 Laboratory results interpreted by me: 05/20/17 05/20/17 05/20/17 20:59 22:30 22:30 WBC 10.7 H RDW 14.3 H Carbon Dioxide 21 L Urine Protein 30 H Urine Ketones 20 H Urine Blood MODERATE H - Diagnostic Test Radiology reviewed: Image reviewed, Reports reviewed Discharge - Discharge Clinical Impression: Bilateral flank pain, Bladder spasm Condition: Stable Disposition: HOME, SELF-CARE Instructions: Family Physicians / Practices Additional Instructions: Flank Pain We weren't able to prove an exact cause for your flank pain. Pain in the flank can be caused by a muscle strain or spasm. Sometimes a kidney stone causes pain, but can't be found on our tests. Infection in the kidney should be evident on a urine test. Early shingles can occasionally cause flank pain, without the rash that proves the diagnosis. On rare occasions, disease of the pancreas, aorta, spleen, or colon can create pain in the flank. At this time, there's no evidence of a dangerous condition, and it seems safe for you to be at home. If the pain goes away and does not come back, no further testing will be needed. If pain persists, or becomes more severe, we may need to repeat some tests or order additional new testing. Blood in the urine, urgency to urinate frequently, and pain that radiates to the groin can indicate a kidney stone. Fever may mean that the pain is due to infection, either of the kidney or the colon (diverticulitis). If your pain is early shingles, you should develop an eruption of blisters in the painful area within a few days. Call the doctor or return if you have pain that is spreading or becoming more severe, pain that does not resolve with time, fever, or any other new symptoms. URINARY ANESTHETIC AGENT: You have been given a medication (Pyridium) for urinary tract discomfort. This medicine numbs the lining of the bladder and urethra, resulting in less pain, burning, and urgency. You may take it as needed, according to instructions. When the symptoms resolve, you can stop this medication (be sure to continue any other medications the doctor has given you). This medicine turns the urine a dark orange. It may stain underwear. Occasionally, it can cause nausea. Return for evaluation if there are any unexpected effects, such as itching, hives, or shortness of breath. FOLLOW-UP CARE: If you have been referred to a physician for follow-up care, call the physician s office for an appointment as you were instructed or within the next two days. If you experience worsening or a significant change in your symptoms, notify the physician immediately or return to the Emergency Department at any time for re-evaluation. Prescriptions: Phenazopyridine HCl [Pyridium 100 Mg Tablet] 100 mg PO TID #14 tablet
[2017-05-20 21:15] LABS: APPEARANCE,URINE SLIGHTLY-CLOUDY; BILIRUBIN,URINE NEGATIVE (NEGATIVE); GLUCOSE, URINE NEGATIVE (NEGATIVE); KETONES,URINE 20 mg/dL (NEGATIVE); LEUKOCYTE ESTERASE,URINE NEGATIVE (NEGATIVE); NITRITE,URINE NEGATIVE (NEGATIVE); PROTEIN,URINE 30 mg/dL (NEGATIVE); URINE SPECIFIC GRAVITY 1.025; UROBILINOGEN,URINE NEGATIVE mg/dL (<2.0)
--- NOTE | 2017-05-20 22:28 | RADIOLOGY REPORT (SQ) ---
EXAM DESCRIPTION: U/S RETROPERITON (RENAL/AORTA) COMPLETED DATE/TIME: 05/20/2017 9:23 pm REASON FOR STUDY: flank pain urinary retention COMPARISON: 12/09/2016 TECHNIQUE: Dynamic and static grayscale images acquired of the kidneys and bladder and recorded on P ACS. Additional selected color Doppler and spectral images recorded. LIMITATIONS: None. FINDINGS: RIGHT KIDNEY: Normal size. Normal echogenicity. No solid or suspicious masses. No hydro nephrosis. No calcifications. LEFT KIDNEY: Normal size. Normal echogenicity. No solid or suspicious masses. No hydronephrosis. No calcifications. BLADDER: Decompressed by a Terrell bladder catheter. OTHER: No other significant finding. IMPRESSION: Normal sonographic appearance of the kidneys. The bladder is decompressed by a Terrell bl adder catheter. TECHNICAL DOCUMENTATION: JOB ID: [id number] [employer]- All Rights Reserved
[2017-05-20 22:49] LABS: ABSOLUTE BASOPHILS # (AUTO) 0.1 10^3/uL (0.0-0.2); ABSOLUTE LYMPHOCYTES (AUTO) 2.6 10^3/uL (0.5-4.7); ABSOLUTE MONOCYTES (AUTO) 0.7 10^3/uL (0.1-1.4); ABSOLUTE NEUT (AUTO) 7.3 10^3/uL (1.7-8.2); BASOPHILS % (AUTO) 0.9 % (0-2); EOSINOPHILS % (AUTO) 0.1 % (0-6); HEMOGLOBIN 13.6 g/dL (12.0-15.5); HGB HCT DIFFERENCE -1.2; LYMPHOCYTES % (AUTO) 24.1 % (13-45); MEAN CORPUSCULAR HEMOGLOBIN 27.6 pg (27.0-33.4); MEAN CORPUSCULAR HGB CONC 32.4 g/dL (32.0-36.0); MEAN CORPUSCULAR VOLUME 85 fl (80-97); MONOCYTES % (AUTO) 6.8 % (3-13); RED BLOOD COUNT 4.94 10^6/uL (3.72-5.28); RED CELL DISTRIBUTION WIDTH 14.3 % (11.5-14.0); SEGMENTED NEUTROPHILS % (AUTO) 68.1 % (42-78); WHITE BLOOD COUNT 10.7 10^3/uL (4.0-10.5)
[2017-05-20 22:57] LABS: ALANINE AMINOTRANSFERASE 36 U/L (9-52); ALBUMIN 4.2 g/dL (3.5-5.0); ALKALINE PHOSPHATASE 107 U/L (38-126); ANION GAP 13 (5-19); ASPARTATE AMINO TRANSFERASE 18 U/L (14-36); BILIRUBIN,DIRECT 0.3 mg/dL (0.0-0.4); BLOOD UREA NITROGEN 14 mg/dL (7-20); CALCIUM 9.2 mg/dL (8.4-10.2); CARBON DIOXIDE 21 mmol/L (22-30); CHLORIDE 105 mmol/L (98-107); CREATININE RESULT 0.74 mg/dL (0.52-1.25); GLUCOSE 89 mg/dL (75-110); POTASSIUM 3.8 mmol/L (3.6-5.0); SODIUM 139.3 mmol/L (137-145); TOTAL PROTEIN 7.5 g/dL (6.3-8.2)
[2017-05-20] MEDS ORDERED: PHENAZOPYRIDINE HCL 200 MG TABLET PO ONE (23:02)
[2017-05-20] MEDS ORDERED: IBUPROFEN 600 MG TABLET PO ONE (23:02)
[2017-05-20 23:39] VITALS: BP 122/86
== END 2017-05-20 23:15 | disposition home or self-care (01) ==
LOC: ER 20:24
DX: R10.9 Unspecified abdominal pain (principal); N32.89 Other specified disorders of bladder; R11.0 Nausea; R21 Rash and other nonspecific skin eruption; R10.12 Left upper quadrant pain; R10.32 Left lower quadrant pain; R10.31 Right lower quadrant pain; R10.11 Right upper quadrant pain; R10.2 Pelvic and perineal pain; R33.9 Retention of urine, unspecified; F41.9 Anxiety disorder, unspecified; Z87.442 Personal history of urinary calculi; Z88.5 Allergy status to narcotic agent; Z88.8 Allergy status to other drugs, medicaments and biological substances; Z88.0 Allergy status to penicillin; Z91.040 Latex allergy status; Z88.1 Allergy status to other antibiotic agents; Z88.2 Allergy status to sulfonamides; Z86.718 Personal history of other venous thrombosis and embolism; Z86.711 Personal history of pulmonary embolism
CPT/HCPCS: 99284; 51702; 36415; 85025; 80053; 81001; 76770; J3490 ×2